=== PATIENT | male | born 1985 | race Hispanic/Latino ===

== ENCOUNTER 2023-08-08 19:08 | Emergency (ER) | payer SELFPAY ==
[~2023-08-08] VITALS: Ht 167.6 cm; Wt 67.0 kg
[2023-08-08] MEDS ORDERED: VOLTAREN - GENE75 MG PO (21:31)
[2023-08-08] MEDS ORDERED: TRAMADOL HCL50 MG PO (21:31)
[2023-08-08 22:13] VITALS: BP 152/92
== END 2023-08-08 22:22 | disposition home or self-care (01) | DRG 563 ==
LOC: ED 19:08
DX: S39.012A Strain of muscle, fascia and tendon of lower back, initial encounter (principal); W19.XXXA Unspecified fall, initial encounter